=== PATIENT | male | born 1975 | race Caucasian/White ===

== ENCOUNTER 2020-07-01 09:04 | Emergency (ER) | payer OTHER, SELFPAY ==
[2020-07-01 09:05] VITALS: BP 171/94; PULSE 89; RESP 16; TEMP 36.6; O2SAT 96; BMI 23.1
--- NOTE | 2020-07-01 09:12 | HMH.EDGENADL ---
ED Disposition Clinical Impression: Lumbar radiculopathy Disposition: Home, Self-Care Condition on Discharge: Fair Instructions: DI for Low Back Pain Referrals: Provider,Referral, [Referring] - 3 days Time of Disposition: 09:38 - Critical Care Critical Care Time: No Attestation: On , the high probability of a clinically significant, sudden or life threatening deterioration of the following system(s) required my full and direct attention, intervention and personal management. The time I documented below is in addition to time spent performing reported procedures but includes the following listed in this critical care notation. Medical Decision Making - Medical Records Medical records reviewed: Yes: I reviewed the patient's medical records. - Ian Inquiry Pt receiving controlled substance: No Vital Signs: 07/01/20 09:05 Temperature 98 F Temperature Source Oral Pulse Rate [Radial] 89 Respiratory Rate 16 Blood Pressure [Right Arm] 171/94 H Blood Pressure Mean [Right Arm] 119 Blood Pressure Position [Right Arm] Sitting 02 Sat by Pulse Oximetry 96 Oxygen Delivery Method Room Air Orders (Tests/Meds): ED MEDICATIONS Discontinued Medications Generic Name Dose Route Start Last Admin Trade Name Freq PRN Reason Stop Dose Admin Ketorolac Tromethamine 30 mg 07/01/20 09:36 07/01/20 10:07 Ketorolac 30mg/Ml Vial IM 07/01/20 09:37 30 mg ONCE ONE Administration - Radiology Data #1 Image(s): L-Spine Image Reviewed: Yes I reviewed the patient's radiology results Preliminary Findings: Abnormal Progression of disease from previous study. Medical Decision Narrative: 45yo M evaluated for low back pain. This is chronic in nature. Patient states he does not want any narcotic pain medication as he is unable to function on these meds. Patient has been taking gabapentin left over from a previous prescription prior to arrival. Patient treated with Toradol in the emergency department. Plain films are obtained only to expedite patient's approval for MRI through his PCP. Discussed with the patient that MRI is not obtained to the emergency department unless a surgical emergency is present. Patient voiced understanding. Patient is prescribed Flexeril upon discharge from the emergency department. X-ray shows worsening of degenerative disc disease from most recent study. Findings shared with patient at bedside. Appropriate and stable for discharge home. General Adult HPI - General Stated complaint: WC back injury 07/01/20 Time Seen by Provider: 07/01/20 09:12 Mode of Arrival: Ambulatory - History of Present Illness HPI narrative: 45yo M with past medical history significant for degenerative disc disease for which she has been evaluated at [facility] neurosurgical clinic. Patient reports to the emergency department secondary to worsening pain. He states he is undergone MRI several years ago. He qualified for surgery but the surgeon encouraged him to wait because he was very young. The patient states his pain progressively worsened and has been significantly worsened over the past 3 days. He complains of pain radiating down bilateral lower extremities. He denies loss of bladder or bowel control. He denies any saddle paresthesia. Patient reports he called his PCPs office and was directed to the emergency department. - Related Data Previous Rx's Medication Instructions Recorded Albuterol Sulfate [Albuterol HFA 1 - 2 puffs IH Q4-6H PRN #1 inh 01/12/19 Inhaler] Amoxicillin/Potassium Clav 1 tab PO Q12H 10 Days #20 tab 01/12/19 [Augmentin 875-125 Tablet] Promethazine/Dextromethorphan 5 ml PO Q6HP PRN #240 syrup 01/12/19 [Promethazine-Dm Syrup] methylPREDNISolone [Medrol] 4 mg PO DIRECTED 6 Days #21 01/12/19 tab.ds.pk Allergies Allergy/AdvReac Type Severity Reaction Status Date / Time cyclobenzaprine Allergy Intermediate I-HIVES Unverified 02/15/17 15:11 [Fr
--- NOTE | 2020-07-01 09:30 | XR_ITS ---
PROCEDURE: XR LUMBAR SPINE 2-3V CLINICAL INDICATION: pain COMPARISON: CR LS5 LUMBAR SPINE 5 VIEWS from 01/26/2016 FINDINGS: Normal alignment. No acute fracture or dislocation. There is degenerative disc disease at L5-S1 with loss of disc space and endplate osteophytes. No lytic or blastic change. IMPRESSION: Moderate degenerative disc disease at L5-S1 which has progressed since 01/26/2016 Dictated by: Jayme Ruiz MD 07/01/2020 10:18 Jayme Ruiz MD in [place] 07/01/2020 10:18
[2020-07-01 10:33] VITALS: BP 164/95; PULSE 56; RESP 14; O2SAT 99
[2020-07-01 10:44] VITALS: BP 165/94; PULSE 78; RESP 16; TEMP 36.6; O2SAT 98
== END 2020-07-01 10:45 | disposition home or self-care (01) ==
PROVIDERS: Emergency Provider Family Medicine; PCP Nurse Practitioner
DX: M54.16 Radiculopathy, lumbar region (principal)
CPT/HCPCS: 72100; 96372; 99282

== ENCOUNTER 2020-11-12 08:00 | Outpatient (RCR) | payer OTHER, SELFPAY | END 2020-12-16 08:10 | disposition home or self-care (01) | LOC: PT.CARL 08:00 | PROVIDERS: PCP Nurse Practitioner; Visit Provider Nurse Practitioner | DX: M54.5 Low back pain (principal) | CPT/HCPCS: 20561; 97010; 97012; 97014; 97033; 97110; 97140; 97163; 97164; G0283 ==

== ENCOUNTER → 2021-01-28 16:35 | Outpatient (CLI) | payer OTHER, SELFPAY ==
--- NOTE | 2021-01-28 16:38 | MR_ITS ---
PROCEDURE INFORMATION: Exam: MR Lumbar Spine Without and With Contrast Exam date and time: 01/28/2021 4:38 PM Age: 45 years old Clinical indication: Low back pain; Additional info: Low back pain. Lbp worse on RT side. Dragging lt foot. Bilateral leg numbness worse on lt leg. No injury or trauma. 17ml prohance given. Lot: [id number] exp: Aug 2022 prior x-ray 07-01-20. Prior MR 02-20-16. TECHNIQUE: Imaging protocol: Multiplanar magnetic resonance images of the lumbar spine without and with intravenous contrast. Contrast material: PROHANCE; Contrast volume: 17 ml; Contrast route: IV; COMPARISON: [employer] ADMINISTRATOR/O MRI-L-SPINE W/O 02/20/2016 7:53 AM FINDINGS: Vertebrae: There is a well-circumscribed area of increased T1 and increased T2 signal within the left lateral aspect of the L1 vertebral body. It demonstrates some enhancement after gadolinium administration. There are areas of signal dropout present within the lesion. It measures 2.0 x 1.9 cm in size. 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 There are areas of increased T1 and increased T2 signal along the inferior endplate of L4, inferior endplate of L5 and superior endplate of S1. No evidence of abnormal enhancement. These findings are compatible with degenerative endplate changes. Prominent anterior osteophyte formation at L5-S1. Spinal cord: Normal signal. No cord compression. The conus medullaris terminates at L1. The cauda equina appears unremarkable. L1-L2: No significant disc disease. No spinal canal stenosis. Exit foramina are patent. L2-L3: There is mild narrowing of the L2-L3 intervertebral disc space. Posterior annular bulging identified. Small posterior annular tear without evidence of disc protrusion. No evidence of central canal stenosis. Exit foramina are patent. L3-L4: There is a small wide-based left paracentral disc protrusion identified. Intervertebral disc space narrowing with degeneration of the intervertebral disc. No evidence of central canal stenosis. There is mild left exit foraminal encroachment. L4-L5: Intervertebral disc space narrowing. Large right paracentral disc extrusion. There is upward sequestration of disc material into the right L4 lateral recess. Mild bilateral facet degeneration and ligamentum flavum hypertrophy. Moderate central canal stenosis. Mild to moderate right exit foraminal encroachment. Left L4-L5 exit foramen is patent. L5-S1: Prominent intervertebral disc space narrowing and degeneration. There is a small left paracentral disc protrusion identified. It contacts the anterior aspect of the thecal sac in the origin of the left S1 nerve root without evidence of compression of either of these structures. Exit foramina appear patent bilaterally. Soft tissues: Unremarkable. IMPRESSION: 1. There is a large left paracentral disc extrusion identified at L4-L5 with upward sequestration of extruded disc into the right L4 lateral recess. Moderate central canal stenosis associated with this finding. 2. Small wide-based left paracentral disc protrusion at L3-L4. No evidence of central canal stenosis. 3. There is a small left paracentral disc protrusion identified at L5-S1. No evidence of central canal stenosis. 4. Findings within the L1 vertebral body are compatible with a small hemangioma of bone, benign. 5. Benign degenerative endplate changes noted within the inferior endplate of L4, the inferior endplate of L5, and superior endplate of S1.
== END ==
PROVIDERS: PCP Nurse Practitioner; Visit Provider Nurse Practitioner
DX: M54.50 Low back pain, unspecified (principal)
CPT/HCPCS: 72158; 76376; A9576

== ENCOUNTER 2021-06-10 08:52 | Emergency (ER) | payer OTHER, SELFPAY ==
[2021-06-10 08:52] VITALS: BP 129/99; PULSE 73; RESP 17; TEMP 36.4; O2SAT 96; BMI 23.7
--- NOTE | 2021-06-10 09:02 | PC.NURSE ---
ED MD at
--- NOTE | 2021-06-10 09:04 | XR_ITS ---
FINAL REPORT CLINICAL HISTORY: fell through deck FINDINGS: Three views were obtained. There is no acute fracture. There is no malalignment. There is moderate disc space narrowing at L5-S1 with endplate sclerosis, anterior osteophyte formation, and facet sclerosis. IMPRESSION: No acute process. Reviewed, Interpreted and Dictated by Primo Walls MD Transcribed by Anthony Coffman Authenticated by Primo Walls MD on 06/10/2021 10:12:08 AM [facility]
--- NOTE | 2021-06-10 09:04 | XR_ITS ---
FINAL REPORT CLINICAL HISTORY: fell through deck FINDINGS: 3 views of the left knee were obtained. There is no acute fracture or dislocation. There is a small osteophyte at the inferior surface of the patella. There is mild narrowing of the medial compartment. There is no soft tissue abnormality. IMPRESSION: No acute process. Reviewed, Interpreted and Dictated by Primo Walls MD Transcribed by Anthony Coffman Authenticated by Primo Walls MD on 06/10/2021 10:12:09 AM [facility]
--- NOTE | 2021-06-10 09:06 | XR_ITS ---
FINAL REPORT CLINICAL HISTORY: fell through deck FINDINGS: 2 views of the right elbow were obtained. There is no acute fracture or dislocation. There is no joint effusion. The joint spaces are intact. There are no acute soft tissue abnormalities. IMPRESSION: No acute process. Reviewed, Interpreted and Dictated by Primo Walls MD Transcribed by Anthony Coffman Authenticated by Primo Walls MD on 06/10/2021 10:12:07 AM [facility]
--- NOTE | 2021-06-10 09:06 | XR_ITS ---
FINAL REPORT CLINICAL HISTORY: fell through deck FINDINGS: Two views of the left tibia-fibula demonstrate no acute fracture or dislocation. The joint spaces appear normal. The visualized bony structures are well aligned. No soft tissue abnormality is seen. IMPRESSION: No acute process. Reviewed, Interpreted and Dictated by Primo Walls MD Transcribed by Anthony Coffman Authenticated by Primo Walls MD on 06/10/2021 10:12:08 AM [facility]
--- NOTE | 2021-06-10 09:10 | HMH.EDGENADL ---
ED Disposition Clinical Impression: Contusion of right hand Qualifiers: Encounter type: initial encounter Qualified Code(s): S60.221A - Contusion of right hand, initial encounter Contusion of right elbow Qualifiers: Encounter type: initial encounter Qualified Code(s): S50.01XA - Contusion of right elbow, initial encounter Lumbar strain Qualifiers: Encounter type: initial encounter Qualified Code(s): S39.012A - Strain of muscle, fascia and tendon of lower back, initial encounter Abrasion of left knee Qualifiers: Encounter type: initial encounter Qualified Code(s): S80.212A - Abrasion, left knee, initial encounter Disposition: Home, Self-Care Condition on Discharge: Good Instructions: DI for Low Back Pain, DI for Contusion Additional Instructions: Ice to sore areas 20 minutes 4 times a day. Elevate injured extremities. Ibuprofen as needed for pain. Continue gabapentin. Follow-up with your primary care doctor next week if not improved. Additional instructions regarding BLOOD PRESSURE: One or more of your blood pressure readings elevated today. Please contact your primary care physician for further evaluation or treatment of your blood pressure. Prescriptions: Ibuprofen [Ibuprofen 800mg Tablet] 800 mg PO Q8HP PRN #15 tab PRN Reason: Moderate Pain Transmission Status: Received by [facility] Referrals: Lilly Monet APRN [Primary Care Provider] - Forms: Work/School Release - Critical Care Critical Care Time: No Attestation: On 06/10/21, the high probability of a clinically significant, sudden or life threatening deterioration of the following system(s) required my full and direct attention, intervention and personal management. The time I documented below is in addition to time spent performing reported procedures but includes the following listed in this critical care notation. Medical Decision Making - Ian Inquiry Pt receiving controlled substance: No Ian was queried for this patient: Yes Vital Signs: 06/10/21 08:52 06/10/21 10:27 Temperature 97.6 F 97.6 F Temperature Source Oral Oral Pulse Rate 84 Pulse Rate [Left Radial] 73 Respiratory Rate 17 18 Blood Pressure 125/89 Blood Pressure [Right Arm] 129/99 H Blood Pressure Mean [Right Arm] 109 02 Sat by Pulse Oximetry 96 Oxygen Delivery Method Room Air Room Air Orders (Tests/Meds): ED MEDICATIONS Discontinued Medications Generic Name Dose Route Start Last Admin Trade Name Freq PRN Reason Stop Dose Admin Ketorolac Tromethamine 30 mg 06/10/21 09:09 06/10/21 09:13 Ketorolac 30mg/Ml Vial IV 06/10/21 09:10 30 mg ONCE ONE Administration - Radiology Data #1 Image(s): L-Spine, Elbow, Hand, Knee, Tib/Fib Image Reviewed: Yes I reviewed the patient's radiology image, Yes I have reviewed radiologist's interpretation Preliminary Findings: Normal/NAD Preliminary x-ray interpretations by me: Left knee: None patellar osteophytes, no fractures or dislocations. No effusion. Left tib-fib: No fracture or dislocation. Right hand: No fracture dislocation pain Right elbow: No fracture, dislocation, or effusion. Lumbar spine: Degenerative changes with osteophytes, no acute fracture or dislocation. Procedure(s): XR hand RT min 3V Accession Number(s): [id number] cc: Primo Walls MD; Lilly Monet APRN~ FINAL REPORT CLINICAL HISTORY: fall FINDINGS: 3 views of the right hand were obtained. There is no acute fracture or dislocation. The joint spaces demonstrate mild DIP and PIP narrowing. There is no soft tissue abnormality. IMPRESSION: No acute process. Reviewed, Interpreted and Dictated by Primo Walls MD Transcribed by Anthony Coffman Authenticated by Primo Walls MD on 06/10/2021 10:12:09 AM [facility] Procedure(s): XR tibia fibula LT 2V Accession Number(s): [id number] cc: Primo Walls MD; Lilly Monet APRN~ FINAL
[2021-06-10 10:27] VITALS: BP 125/89; PULSE 84; RESP 18; TEMP 36.4; O2SAT 99
== END 2021-06-10 10:33 | disposition home or self-care (01) ==
PROVIDERS: Emergency Provider Emergency Medicine; PCP Nurse Practitioner
DX: S60.221A Contusion of right hand, initial encounter (principal); S50.01XA Contusion of right elbow, initial encounter; S39.012A Strain of muscle, fascia and tendon of lower back, initial encounter; S80.212A Abrasion, left knee, initial encounter; W17.89XA Other fall from one level to another, initial encounter; Y92.69 Other specified industrial and construction area as the place of occurrence of the external cause; Y99.0 Civilian activity done for income or pay
CPT/HCPCS: 72100; 73070; 73130; 73562; 73590; 96374; 96375; 99284